=== PATIENT | female | born 1980 | race Caucasian/White ===

== ENCOUNTER 2016-12-09 11:16 | Outpatient (CLI) | payer MEDICAID ==
[~2016-12-09] VITALS: Ht 157.5 cm; Wt 82.7 kg
[2016-12-09 11:50] VITALS: Ht 157.5 cm; Wt 82.7 kg
[2016-12-09 11:51] VITALS: BP 98/56; PULSE 72
[2016-12-09] MEDS ORDERED: PRENAT PO (11:54)
[2016-12-09] MEDS ORDERED: LACTATED RINGER'S 1,000 ML IV SCH (12:30)
--- NOTE | 2016-12-09 12:47 | RADRPT ---
PROCEDURE: OB ultrasound for biophysical profile CLINICAL INDICATION: Contractions TECHNIQUE: Multiple sonographic images of the pelvis were obtained. Transabdominal view of the gr avid uterus are available for review. The images were reviewed on a PACS workstation. COMPARISON: OB ultrasound 12/09/2016 FINDINGS: breathing movement = 2/2 tone = 2/2 motion = 2/2 JEN = 2/2 JEN = 13.3 cm Single live intrauterine with cardiac activity. heart rate equals 136 beats p er minute. Presentation is cephalic. The placenta is left fundal, grade II. IMPRESSION: 1. Single viable intrauterine gestation. 2. Biophysical profile = 8/8. 3. JEN = 13.3 cm. RPTAT: KK .Frna Nelson MD, Date Time Electronically viewed and signed by .Fran Nelson MD, MD on 12/09/2016 12:47 .B/
[2016-12-09 14:14] LABS: ADD UMIC YES; UR AMORPHOUS CRYSTAL FEW /HPF (NONE SEEN); UR ASCORBIC ACID NEGATIVE (NEGATIVE); UR BACTERIA FEW /HPF (NONE SEEN); UR BILIRUBIN (Dip) NEGATIVE (NEGATIVE); UR BLOOD (Dip) NEGATIVE (NEGATIVE); UR CLARITY CLOUDY (CLEAR); UR COLOR YELLOW (YELLOW); UR GLUCOSE (Dip) NEGATIVE (NEGATIVE); UR KETONES (Dip) NEGATIVE (NEGATIVE); UR LEUKOCYTE ESTERASE (Dip) NEGATIVE Leu/ul (NEGATIVE); UR NITRITE (Dip) NEGATIVE (NEGATIVE); UR RBC 2 /HPF (0-5); UR SPECIFIC GRAVITY (Dip) 1.013 (1.003-1.030); UR SQUAMOUS EPITHELIAL CELL MODERATE /HPF (FEW); UR TOTAL PROTEIN (Dip) NEGATIVE (NEGATIVE); UR UROBILINOGEN (Dip) NEGATIVE (NEGATIVE)
--- NOTE | 2016-12-09 15:40 | CONS ---
Date/Time of Note Date/Time of Note DATE: 12/09/16 TIME: 15:34 Consultation Date/Type/Reason Admit Date/Time December 09, 2016 OB triage consult Reason for Consultation This patient is 36 years old 4 para 3 whose estimated date of confinement is 01/15/2017 which makes her 34 weeks and 4 days today. She has gestational diabetes mellitus which is diet-controlled at this time her main complaint was contractions On examination she is a well-developed well-nourished lady near term in no acute distress. Her general vital signs are basically normal, blood pressure 98/52, pulse rate 72, respiration 18 and temperature 98,. On pelvic examination the cervix was basically closed and thick no evidence of rupture of membranes. Laboratory Tests Test 12/09/16 12:01 12/09/16 12:50 Bedside Glucose 105mg/dL Urine Color YELLOW Urine Clarity CLOUDY Urine pH 7.0 Urine Specific [place] 1.013 Urine Ketones NEGATIVEmg/dL Urine Nitrite NEGATIVEmg/dL Urine Bilirubin NEGATIVEmg/dL Urine Urobilinogen NEGATIVEmg/dL Urine Leukocyte Esterase NEGATIVELeu/ul Urine Microscopic RBC 2/HPF Urine Microscopic WBC 4/HPF Urine Squamous Epithelial Cells MODERATE/HPF Urine Amorphous Crystals FEW/HPF Urine Bacteria FEW/HPF Urine Hemoglobin NEGATIVEmg/dL Urine Glucose NEGATIVEmg/dL Urine Total Protein NEGATIVEmg/dl Current Medications Medications (Trade) Dose Ordered Sig/Ruthy Route PRN Reason Start Time Stop Time Status Last Admin Dose Admin Lactated Ringer's (Lr) 1,000 ml @ 125 mls/hr Q8H IV 12/09/16 12:30 12/09/16 12:30 125 MLS/HR Constitutional: No chills, No diaphoresis, No disoriented, No febrile, No improved, No no complaints, No other, No poor po, No requiring IVF, No requiring O2 Eyes: No discharge, No no complaints, No other, No pain, No redness, No visual change ENT: No bleeding, No congestion, No discharge, No dysphagia, No no complaints, No other, No pain, No sore throat Respiratory: No cough, No no complaints, No other, No pain, No pleuritic pain, No shortness of breath, No sputum, No wheezing Cardiovascular: No chest pain, No edema, No lightheadedness, No no complaints, No orthopenea, No other, No palpitations, No paroxysmal nocturnal dyspnea Gastrointestinal: other (Cervix was closed and thick with intact membrane), No blood, No constipation, No decreased appetite, No diarrhea, No flatus, No nausea, No no complaints, No pain, No passing stool, No vomiting Genitourinary: No bleeding, No discharge, No dysuria, No flank pain, No hematuria, No no complaints, No other Musculoskeletal: No back pain, No bone/joint pain, No neck pain, No no complaints, No other, No restricted range of motion, No swelling Skin: No bruising, No erythema, No laceration, No no complaints, No other, No pruritis, No rash, No skin lesions Neurologic: No confusion, No dizziness, No focal-weakness, No headache, No no complaints, No other, No seizure, No syncope Endocrine: No dry skin, No no complaints, No other, No polydypsia, No polyuria , No temp intolerance Additional Comments . The lab studies her urinalysis was basically normal no evidence of infection On ultrasound study the report is a single live intrauterine with cardiac activity of 136 bpm cephalic presentation placenta fundal grade 2 biophysical profile was reported 11/15 amniotic fluid index 13.3 cm After hydration and rest patient felt much better with no contractions and was discharged home to be followed in her clinic Social History Smoking Status: Never smoker Exam/Review of Systems Vital Signs Vitals Vital Signs Date Time Temp Pulse Resp B/P Pulse Ox O2 Delivery O2 Flow Rate FiO2 12/09/16 11:51 98.0 72 98/56 Results Results 24 hrs Laboratory Tests Test 12/09/16 12:01 12/09/16 12:50 Bedside Glucose 105 Urine Color YELLOW Urine Clarity CLOUDY A Urine pH 7.0 Urine Specific [place] 1.013 Urine Ketones NEGATIVE Urine Nitrite NEGATIVE Urine Bilirubin NEGATIVE Urine Urobilinogen NEGATIVE Urine Leukocyte Esterase NEGATIVE Urine Microscopic RBC 2 Urine Microscopic WBC 4 Urine Squamous Epithelial Cells MODERATE Urine Amorphous Crystals FEW A Urine Bacteria FEW A Urine Hemoglobin NEGATIVE Urine Glucose NEGATIVE Urine Total Protein NEGATIVE Medications Medications Current Medications Lactated Ringer's (Lr) 1,000 ml @ 125 mls/hr Q8H IV Last administered on t 12:30; Admin Dose 125 MLS/HR; Start 12/09/16 at 12:30 EULALIA MARQUEZ MD Dec 09, 2016 15:40
== END 2016-12-09 15:30 | disposition home or self-care (01) ==
LOC: OBT 11:16 → L-D 11:17 → OBT 15:30
DX: O62.9 Abnormality of forces of labor, unspecified (principal); Z3A.34 34 weeks gestation of pregnancy
CPT/HCPCS: 36415; 76818; 81001; 82962; 96360; 96361; J7120; Z7500; G0463

== ENCOUNTER 2016-12-11 05:30 | Emergency (ER) | payer MEDICAID ==
[~2016-12-11] VITALS: Ht 157.5 cm; Wt 84.6 kg
[~2016-12-11 05:30] MED LIST: PRENAT PO
[2016-12-11 05:38] VITALS: Ht 157.5 cm; Wt 84.6 kg
[2016-12-11] MEDS ORDERED: ACET325T33 PO (08:28)
[2016-12-11] MEDS ORDERED: AMOX1TAB10 PO (08:28)
--- NOTE | 2016-12-11 08:55 | ERD ---
ER Documentation Chief Complaint Date/Time DATE: 12/11/16 TIME: 08:49 Chief Complaint C/O RIGHT LOWER DENTAL PAIN. HAS NOT SEEN DENTIST HPI This is a 36-year-old female presenting to emergency department with right lower dental pain for the past 3 days. Patient has not been in to see a dentist yet for this. No facial swelling. No headache. No nausea or vomiting. Patient is also 34 weeks . Denies vaginal bleeding or pelvic cramping. Denies any contractions. No fevers or chills. ROS All systems reviewed and are negative except as per history of present illness. Medications Home Meds Active Scripts Acetaminophen* (Tylenol*) 325 Mg Tablet, 1 TAB PO Q6 Y for PAIN AND OR ELEVATED TEMP, #20 TAB Prov:STEPHANY CHEN NP 12/11/16 Amoxicillin/Potassium Clav (Amox-Clav 875-125 mg Tablet) 875-125 mg Tab, 1 TAB PO TID for 7 Days, #14 TAB Prov:STEPHANY CHEN NP 12/11/16 Reported Medications Multivit/Min/Fol Ac/Iron/Pren* ( S*) 1 Tab Tab, 1 TAB PO DAILY, TAB 12/09/16 Allergies Allergies: Coded Allergies: No Known Allergy (Unverified , 12/09/16) PMhx/Soc Medical and Surgical Hx: pt denies Surgical Hx Hx Miscellaneous Medical Probl: Yes (Gestational DM) Hx Alcohol Use: No Hx Substance Use: No Hx Tobacco Use: No Smoking Status: Never smoker Physical Exam Vitals Vital Signs Date Time Temp Pulse Resp B/P Pulse Ox O2 Delivery O2 Flow Rate FiO2 12/11/16 05:38 97.9 82 20 124/69 99 Physical Exam Const: No acute distress , alert Head: Atraumatic Eyes: Normal Conjunctiva ENT: deterioration of right lower 2nd molar, no swelling. no drainage. Neck: Full range of motion..~ No meningismus. Skin: No petechiae or rashes Ext: No cyanosis, or edema Neur: Awake and alert Psych: Normal Mood and Affect Procedures/MDM MDM: This is a 36-year-old female presenting to emergency department with right lower second molar dental pain for the past 3 days. Patient is afebrile upon arrival to ED and vital signs are stable. Patient has not been to see dentist yet for this. Patient's pain is localized to 2nd lower molar. There is deterioration of this tooth on physical exam. No swelling or drainage. No earache. No headache. Patient is also 34 weeks without any vaginal bleeding or pelvic cramping. Vital are stable. No nausea, vomiting, abdominal pain,dysuria or hematuria. Differential diagnosis includes but not limited to dental abscess, deep space abscess or infection, otitis media, strep pharyngitis and pain not otherwise specified. Patient is appropriate for outpatient management will be given prescription for Augmentin 875 mg #21. Instructed patient to follow-up with dentist in the next 2-3 days for reassessment. Return to ED for any high fever, chest pain, difficulty breathing, shortness breath, wheezing, vomiting, diarrhea, abdominal pain or any new or worsening symptoms. Patient verbalizes understanding. All questions answered at discharge. Disclaimer: Inadvertent spelling and grammatical errors are likely due to EHR/ dictation software use and do not reflect on the overall quality of patient care. Also, please note that the electronic time recorded on this note does not necessarily reflect the actual time of the patient encounter. Departure Diagnosis: Primary Impression: Toothache Condition: Stable Patient Instructions: Dental Pain Referrals: [facility] Usted se woods hecho un examen mdico de control que le indica que no est en fransisco condicin que requiera tratamiento urgente en el Departamento de Emergencia. Un estudio ms profundo y el tratamiento de chanel condicin pueden esperar sin ningn riesgo hasta que usted sea atendida/o en el consultorio de chanel mdico o fransisco cl katy. Es responsabilidad suya arreglar fransisco aruna para el seguimiento del samantha. MANEJO DE CONDICIONES NO URGENTES EN EL FUTURO 1) Si usted tiene un mdico de atencin primaria: Usted debera llamar a chanle mdico de atencin primaria antes de venir al departamento de emergencia. Despus de las horas de consultorio, chanel doctor o chanel asociado/a est disponible por telfono. El mdico o enfermero de cookie en el servicio telefnico puede asesorarle por purnima medio para atender el problema, o samantha contrario se puede programar fransisco aruna. 2) Si usted no tiene un mdico de atencin primaria: Llame al mdico o clnica de referencia que aparece abajo eros las horas de consultorio para hacer fransisco aruna para que le vean. CLINICAS: [facility] [phone] [facility] [phone] [facility] [phone] [facility] [phone] [facility] [phone] [address] [facility] [phone] [address] [facility] [facility] () Usted se woods hecho un examen mdico de control que le indica que no est en fransisco condicin que requiera tratamiento urgente en el Departamento de Emergencia. Un estudio ms profundo y el tratamiento de chanel condicin pueden esperar sin ningn riesgo hasta que usted sea atendida/o en el consultorio de chanel mdico o fransisco cl katy. Es responsabilidad suya arreglar fransisco aruna para el seguimiento del samantha. MANEJO DE CONDICIONES NO URGENTES EN EL FUTURO 1) Si usted tiene un mdico de atencin primaria: Usted debera llamar a chanel mdico de atencin primaria antes de venir al departamento de emergencia. Despus de las horas de consultorio, chanel doctor o chanel asociado/a est disponible por telfono. El mdico o enfermero de cookie en el servicio telefnico puede asesorarle por purnima medio para atender el problema, o samantha contrario se puede programar fransisco aruna. 2) Si usted no tiene un mdico de atencin primaria: Llame al mdico o condado institucions de referencia que aparece abajo eros las horas de consultorio para hacer fransisco aruna para que le vean. SI USTED NO PUEDE PAGAR PARA YUMIKO UN MEDICO puede ir a: [facility] [address] [place] [address] [facility] [address] [place] [address] [facility] [address] [place] [address] PARA [facility]SE[facility] [address] [place], [place] [id number] Additional Instructions: Llame al doctor MAANA y ralph fransisco ARUNA PARA DENTRO DE 2-3 HAHN.Dgale a la secretaria que nosotros le instruimos hacer esta aruna.Avise o llame si chanel condicin se empeora antes de la aruna. Regresa aqui si peor o no mejor. Regresar a ED por fiebre attila, dolor en el pecho, dificultad para respirar, respiracin entrecortada, sibilancias, vmitos, diarrea, dolor abdominal o cualquier sntoma nuevo o que empeora. STEPHANY CHEN NP Dec 11, 2016 08:55
== END 2016-12-11 08:51 | disposition home or self-care (01) ==
LOC: FTE 05:30
DX: O99.613 Diseases of the digestive system complicating pregnancy, third trimester (principal); K08.89 Other specified disorders of teeth and supporting structures; Z3A.34 34 weeks gestation of pregnancy
CPT/HCPCS: 99283

== ENCOUNTER 2016-12-11 21:05 | Outpatient (CLI) | payer MEDICAID ==
[~2016-12-11] VITALS: Ht 157.5 cm; Wt 83.3 kg
[~2016-12-11 21:05] MED LIST changes: +ACET325T33 PO; +AMOX1TAB10 PO
[2016-12-11 21:18] VITALS: BP 115/75; PULSE 18; RESP 18; Ht 157.5 cm; Wt 83.3 kg
[2016-12-11] MEDS ORDERED: LACTATED RINGER'S 1,000 ML IV ONE (23:30)
[2016-12-11] MEDS ORDERED: BETAMET NA PHOS/AC(6 MG/ML) 5ML INJ IM SCH (23:30)
[2016-12-11 23:33] LABS: ADD UMIC NO; UR ASCORBIC ACID NEGATIVE (NEGATIVE); UR BILIRUBIN (Dip) NEGATIVE (NEGATIVE); UR BLOOD (Dip) NEGATIVE (NEGATIVE); UR CLARITY CLEAR (CLEAR); UR COLOR YELLOW (YELLOW); UR GLUCOSE (Dip) NEGATIVE (NEGATIVE); UR KETONES (Dip) NEGATIVE (NEGATIVE); UR LEUKOCYTE ESTERASE (Dip) NEGATIVE Leu/ul (NEGATIVE); UR NITRITE (Dip) NEGATIVE (NEGATIVE); UR SPECIFIC GRAVITY (Dip) 1.006 (1.003-1.030); UR TOTAL PROTEIN (Dip) NEGATIVE (NEGATIVE); UR UROBILINOGEN (Dip) NEGATIVE (NEGATIVE)
--- NOTE | 2016-12-12 01:26 | PN ---
Triage Information Date/Time 12/12/16 0113 Reason for visit: Uterine contractions Weeks of Gestation 34w6d /Para had x3 previous sections ER send for OB ck after evaluation for toothache Hypertention: none Additional information lower abdominal pain 10/17 Objective Vital Signs Date Time Temp Pulse Resp B/P Pulse Ox O2 Delivery O2 Flow Rate FiO2 12/11/16 21:18 97.6 18 18 115/75 Room Air Heart Rate: 140's Heart Rate Comments EFM uc 3-5min apart Contractions: < 5 Minutes Apart Exam VE closed /long/high Results/Medications Results 24 hrs Laboratory Tests Test 12/11/16 23:00 Urine Color YELLOW Urine Clarity CLEAR Urine pH 7.0 Urine Specific [place] 1.006 Urine Ketones NEGATIVE Urine Nitrite NEGATIVE Urine Bilirubin NEGATIVE Urine Urobilinogen NEGATIVE Urine Leukocyte Esterase NEGATIVE Urine Hemoglobin NEGATIVE Urine Glucose NEGATIVE Urine Total Protein NEGATIVE Medications Current Medications Betamethasone Acet/Betameth SodPhos (Celestone Soluspan) 12 mg Q24H IM Last administered on 12/12/16 00:00; Admin Dose 12 MG; Start 12/11/16 at 23:30; Stop 12/12/16 at 23:31 Disposition: Discharge Assessment/Plan IUP 34w6d PTL resolution of PTL after IV hydration 1st dose of bmz given Plan increse fluid intake bed rest return to triage tomorrow m/n for 2nd dose of betamethasone CHAVEZ WARREN MD Dec 12, 2016 01:26
--- NOTE | 2016-12-12 02:27 | TRIAGE ---
OB Triage Datetime Report Generated by CPN: 12/12/2016 02:26 Datetime: 12/12/2016 01:01 Stage of : OB Triage Datetime: 12/12/2016 01:00 Stage of : OB Triage Stage of : Labor Labor Evaluation Frequency: X3 Monitor Mode: External Duration (sec)2399: 50-70 Pattern: Normal: <= 5 Contractions in 10 Minutes Heart Rate FHR Baseline Rate: 135 Monitor Mode: External US Variability: Moderate 6-25 bpm Accelerations: 15X15 Decelerations: None Category: Category I Pain Presence: None/Denies Pain Assessment Comments: PT SLEEPING AT THIS TIME. Datetime: 12/12/2016 00:00 Stage of : OB Triage Stage of : Labor Labor Evaluation Frequency: IRREGULAR Monitor Mode: External Duration (sec)2399: 50-60 Quality: UTERINE IRRITABILITY NOTED. Pattern: Normal: <= 5 Contractions in 10 Minutes Heart Rate FHR Baseline Rate: 135 Monitor Mode: External US Variability: Moderate 6-25 bpm Accelerations: 15X15 Decelerations: None Category: Category I Datetime: 12/11/2016 23:00 Stage of : OB Triage Stage of : Labor Monitor Mode: External Quality: UTERINE IRRITABILITY NOTED. Pattern: Normal: <= 5 Contractions in 10 Minutes Heart Rate FHR Baseline Rate: 145 Monitor Mode: External US Variability: Moderate 6-25 bpm Accelerations: 15X15 Decelerations: None Datetime: 12/11/2016 22:01 Stage of : OB Triage Labor Evaluation Frequency: IRREGULAR Monitor Mode: External Duration (sec)2399: 60-80 Quality: Mild Pattern: Normal: <= 5 Contractions in 10 Minutes Heart Rate FHR Baseline Rate: 135 Monitor Mode: External US Variability: Moderate 6-25 bpm Accelerations: 15X15 Decelerations: None Category: Category I Datetime: 12/11/2016 21:34 Stage of : OB Triage Datetime: 12/11/2016 21:30 Stage of : OB Triage Assessment Type: Triage Time Provider Notified: 12/11/2016 21:34 Maternal Assessment Level of Consciousness: Fully Conscious DTR's/Clonus: DTRs 2+; No Clonus Headache: Denies Blurred Vision: No Respiratory Effort: Unlabored; Regular Rhythm; Equal Expansion Breath Sounds, Left: Clear and Equal Breath Sounds, Right: Clear and Equal Nausea/Vomiting: Denies RUQ Epigastric Pain: Denies Lower Extremities Edema: None Degree: None Upper Extremities Edema: None Degree: None Facial Edema: None Temperature Route: Oral Fall Risk Assessment History of Falling: (0) No Secondary Diagnosis: (0) No Ambulatory Aid: (0) Bedrest/Nurse Assist IV Therapy: (0) No Gait: (0) Normal/Bedrest/Immobile Mental Status: (0) Oriented to Own Ability Fall Score: 0 Fall Risk Score Definition: No Risk: No action required Pain Assessment Pain Scale: 7 Pain Presence: Intermittent Pain Type: Contraction Pain Location: Abdomen Pain Relief Measures: Comfort Measures Datetime: 12/11/2016 21:24 Time of Arrival: 12/11/2016 21:05 EGA: 34.6 Arrived By: Ambulatory Arrived From: Emergency Dept Chief Complaint: CONTRACTIONS SINCE 1800 Movement: Present Contractions: Irregular Time Contractions Began: 12/11/2016 18:00 Rupture of Membranes: Denies Vaginal Discharge: Denies Recent Sexual Intercouse: Denies Abdominal Trauma: Not Applicable Patient Complaints: Contractions Time Provider Notified: 12/11/2016 21:20 Initial Plan: EFM, CALL OB Datetime: 12/09/2016 15:16 Stage of : OB Triage Datetime: 12/09/2016 14:53 Labor Evaluation Frequency: 0 Monitor Mode: External Pattern: Normal: <= 5 Contractions in 10 Minutes Resting Tone [place]: Relaxed Heart Rate FHR Baseline Rate: 135 Monitor Mode: External US Variability: Moderate 6-25 bpm Accelerations: 10X10 Decelerations: None Category: Category I Pain Assessment Pain Scale: 0 Pain Presence: None/Denies Pain Type: N/A Pain Goal: 3 Pain Relief Measures: Comfort Measures Datetime: 12/09/2016 13:47 Labor Evaluation Frequency: 0 Monitor Mode: External Pattern: Normal: <= 5 Contractions in 10 Minutes Resting Tone [place]: Relaxed Heart Rate FHR Baseline Rate: 135 Monitor Mode: External US Variability: Moderate 6-25 bpm Accelerations: 10X10 Decelerations: None Category: Category I Pain Assessment Pain Scale: 0 Pain Presence: None/Denies Pain Type: N/A Pain Goal: 3 Pain Relief Measures: Comfort Measures Datetime: 12/09/2016 12:45 Labor Evaluation Frequency: 7-8 Monitor Mode: External Duration (sec)2399: 50-70 Quality: Mild Pattern: Normal: <= 5 Contractions in 10 Minutes Resting Tone [place]: Relaxed Heart Rate FHR Baseline Rate: 135 Monitor Mode: External US Variability: Moderate 6-25 bpm Accelerations: 10X10 Decelerations: None Category: Category I Pain Assessment Pain Scale: 4 Pain Presence: Intermittent Pain Type: Cramping Pain Location: Abdomen Pain Goal: 3 Pain Relief Measures: Comfort Measures Datetime: 12/09/2016 12:02 Stage of : OB Triage Datetime: 12/09/2016 12:00 Bedside Blood Glucose: 105 Datetime: 12/09/2016 11:44 Stage of : OB Triage Assessment Type: Triage Maternal Assessment Level of Consciousness: Fully Conscious DTR's/Clonus: DTRs 2+; No Clonus Headache: Denies Blurred Vision: No Respiratory Effort: Unlabored; Regular Rhythm; Equal Expansion Breath Sounds, Left: Clear and Equal Breath Sounds, Right: Clear and Equal Nausea/Vomiting: Denies RUQ Epigastric Pain: Denies Facial Edema: None Temperature Route: Axillary Fall Risk Assessment History of Falling: (0) No Secondary Diagnosis: (0) No Ambulatory Aid: (0) Bedrest/Nurse Assist IV Therapy: (0) No Gait: (0) Normal/Bedrest/Immobile Mental Status: (0) Oriented to Own Ability Fall Score: 0 Fall Risk Score Definition: No Risk: No action required Monitor Mode: External Pattern: Normal: <= 5 Contractions in 10 Minutes Resting Tone [place]: Relaxed Heart Rate FHR Baseline Rate: 135 Monitor Mode: External US Variability: Moderate 6-25 bpm Accelerations: 10X10 Decelerations: None Category: Category I Pain Assessment Pain Scale: 5 Pain Presence: Intermittent Pain Type: Cramping Pain Location: Abdomen Pain Goal: 3 Pain Relief Measures: Comfort Measures Datetime: 12/09/2016 11:43 Time of Arrival: 12/09/2016 11:10 EGA: 34.4 Arrived By: Ambulatory Arrived From: Dr. Waterman Chief Complaint: STATES WAS IN CLINIC TODAY AND TOLD SHE WAS HAVING UC;S Q 4 MIN. DENIES LEAKING OR BLEEDING Movement: Present Contractions: Regular Contractions: Q4 Rupture of Membranes: Denies Vaginal Bleeding: None Vaginal Discharge: Denies Recent Sexual Intercouse: Denies Abdominal Trauma: Not Applicable Patient Complaints: Cramping Time Provider Notified: 12/09/2016 12:02 Provider Notified: tala Initial Plan: MONITOR, bpp, diomedes, iv hydration, u/a
== END 2016-12-12 01:04 | disposition home or self-care (01) ==
LOC: L-D 21:05 → OBT 21:05 → L-D 21:07 → OBT 12-12 01:04
PROVIDERS: ATTEND Obstetrics & Gynecology
DX: O62.9 Abnormality of forces of labor, unspecified (principal); Z3A.34 34 weeks gestation of pregnancy
CPT/HCPCS: 36415; 81003; 96360; 96361; 96372; J0702; J7120; Z7500; G0463

== ENCOUNTER 2016-12-12 23:48 | Outpatient (CLI) | payer MEDICAID ==
[2016-12-13] MEDS ORDERED: BETAMET NA PHOS/AC(6 MG/ML) 5ML INJ IM SCH (00:30)
--- NOTE | 2016-12-13 00:43 | PN ---
Triage Information Date/Time Reason for visit: Weeks of Gestation 35 weeks /Para 4 P3 with prior history of 3 She presents to receive the second dose of betamethasone Patient reports positive movement Diabetes: none Hypertention: none Objective Heart Rate: 140's Contractions: None Results/Medications Medications Current Medications Betamethasone Acet/Betameth SodPhos (Celestone Soluspan) 12 mg Q24H IM Last administered on 12/13/16 00:32; Admin Dose 12 MG; Start 12/13/16 at 00:30; Stop 12/14/16 at 00:31 Disposition: Discharge Assessment/Plan Patient received a second dose of betamethasone She was instructed to follow-up with the clinic in 2-3 days IQRA BANSAL MD Dec 13, 2016 00:43
--- NOTE | 2016-12-13 00:59 | TRIAGE ---
OB Triage Datetime Report Generated by CPN: 12/13/2016 00:58 Datetime: 12/13/2016 00:15 Stage of : OB Triage Datetime: 12/12/2016 23:56 Time of Arrival: 12/12/2016 23:42 EGA: 35.0 Arrived By: Ambulatory Arrived From: Home Chief Complaint: PT BACK FOR 2ND BETAMETHASONE Movement: Present Contractions: Irregular Rupture of Membranes: Denies Vaginal Bleeding: None Vaginal Discharge: Denies Recent Sexual Intercouse: Denies Abdominal Trauma: Not Applicable Patient Complaints: Other Time Provider Notified: 12/13/2016 00:25 Provider Notified: DR BANSAL Initial Plan: TOCO AND EFM APPLY Datetime: 12/11/2016 21:24 Initial Plan: TO AND EFM APPLY , CALL OB
== END 2016-12-13 00:46 | disposition home or self-care (01) ==
LOC: OBT 23:48 → L-D 23:48 → OBT 12-13 00:46
PROVIDERS: ATTEND Obstetrics & Gynecology Gynecology
DX: O62.9 Abnormality of forces of labor, unspecified (principal); Z3A.35 35 weeks gestation of pregnancy
CPT/HCPCS: 96372; J0702; Z7500; G0463

== ENCOUNTER 2017-01-04 14:10 | Inpatient (IN) | payer MEDICAID ==
[~2017-01-04] VITALS: Ht 157.5 cm; Wt 84.7 kg
[~2017-01-04 14:10] MED LIST changes: -ACET325T33 PO; -AMOX1TAB10 PO
[2017-01-04] MEDS ORDERED: FER325 PO (14:31)
[2017-01-04] MEDS ORDERED: CALC600T24 PO (14:31)
[2017-01-04 14:32] VITALS: BP 104/61; PULSE 69; RESP 18; Ht 157.5 cm; Wt 84.7 kg
--- NOTE | 2017-01-04 16:13 | TRIAGE ---
OB Triage Datetime Report Generated by CPN: 01/04/2017 16:12 Datetime: 01/04/2017 15:30 Stage of : OB Triage Maternal Assessment Level of Consciousness: Fully Conscious Labor Evaluation Frequency: 3UC/HR Monitor Mode: External Duration (sec)2399: 80-110 Quality: Moderate Resting Tone [place]: Relaxed Heart Rate FHR Baseline Rate: 115 Monitor Mode: External US Variability: Moderate 6-25 bpm Accelerations: 15X15 Decelerations: None Category: Category I Pain Assessment Pain Scale: 7 Pain Presence: Intermittent Pain Type: Cramping Pain Location: Abdomen Pain Goal: 3 Vaginal Exam Membrane Status: Intact Vaginal Bleeding: None Datetime: 01/04/2017 14:28 Assessment Type: Triage Maternal Assessment Level of Consciousness: Fully Conscious DTR's/Clonus: DTRs 2+; No Clonus Headache: Denies Blurred Vision: No Respiratory Effort: Unlabored; Regular Rhythm; Equal Expansion Breath Sounds, Left: Clear and Equal Breath Sounds, Right: Clear and Equal Nausea/Vomiting: Denies RUQ Epigastric Pain: Denies Lower Extremities Edema: None Degree: None Upper Extremities Edema: None Degree: None Facial Edema: None Fall Risk Assessment History of Falling: (0) No Secondary Diagnosis: (0) No Ambulatory Aid: (0) Bedrest/Nurse Assist IV Therapy: (0) No Gait: (0) Normal/Bedrest/Immobile Mental Status: (0) Oriented to Own Ability Fall Score: 0 Fall Risk Score Definition: No Risk: No action required Datetime: 01/04/2017 14:25 Time of Arrival: 01/04/2017 14:03 EGA: 38.2 Arrived By: Ambulatory Arrived From: Office Chief Complaint: C/O UC'S X2 DAYS Movement: Present Contractions: Irregular Rupture of Membranes: Denies Vaginal Bleeding: None Vaginal Discharge: Denies Recent Sexual Intercouse: Denies Abdominal Trauma: Not Applicable Patient Complaints: Contractions; Cramping Time Provider Notified: 01/04/2017 16:00 Provider Notified: DELSHAD Initial Plan: EFM Datetime: 01/04/2017 14:23 Monitor Mode: External Monitor Mode: External US Datetime: 12/13/2016 00:48 Stage of : OB Triage Datetime: 12/13/2016 00:35 Stage of : OB Triage Datetime: 12/13/2016 00:28 Stage of : OB Triage Maternal Assessment Level of Consciousness: Fully Conscious Labor Evaluation Frequency: NONE Monitor Mode: External Heart Rate FHR Baseline Rate: 130 Monitor Mode: External US Variability: Moderate 6-25 bpm Accelerations: 15X15 Decelerations: None Category: Category I Pain Presence: None/Denies Datetime: 12/13/2016 00:25 Stage of : OB Triage Datetime: 12/13/2016 00:15 Maternal Assessment Level of Consciousness: Fully Conscious DTR's/Clonus: DTRs 2+; No Clonus Headache: Denies Blurred Vision: No Respiratory Effort: Unlabored; Regular Rhythm; Equal Expansion Breath Sounds, Left: Clear and Equal Breath Sounds, Right: Clear and Equal Nausea/Vomiting: Denies RUQ Epigastric Pain: Denies Lower Extremities Edema: None Upper Extremities Edema: None Facial Edema: None Temperature Route: Oral Fall Risk Assessment History of Falling: (0) No Secondary Diagnosis: (0) No Ambulatory Aid: (0) Bedrest/Nurse Assist IV Therapy: (0) No Gait: (0) Normal/Bedrest/Immobile Mental Status: (0) Oriented to Own Ability Fall Score: 0 Fall Risk Score Definition: No Risk: No action required Labor Evaluation Frequency: 70 Monitor Mode: External Quality: Mild Heart Rate FHR Baseline Rate: 130 Monitor Mode: External US Variability: Moderate 6-25 bpm Accelerations: 15X15 Decelerations: None Category: Category I Pain Presence: None/Denies Datetime: 12/12/2016 23:56 EGA: 35.0 Datetime: 12/11/2016 21:30 Fall Score: 0 Fall Risk Score Definition: No Risk: No action required Datetime: 12/11/2016 21:24 EGA: 34.6 Datetime: 12/09/2016 11:44 Fall Score: 0 Fall Risk Score Definition: No Risk: No action required Datetime: 12/09/2016 11:43 EGA: 34.4
[2017-01-04] MEDS ORDERED: MISOPROSTOL 200 MCG TAB PR PRN (17:00)
[2017-01-04] MEDS ORDERED: CARBOPROST 250 MCG INJ IM PRN (17:00)
[2017-01-04] MEDS ORDERED: OXYTOCIN 30 UNITS/LR 500 ML IV PRN (17:00)
[2017-01-04] MEDS ORDERED: METHYLERGONOVINE 0.2 MG INJ IM PRN (17:00)
[2017-01-04] MEDS ORDERED: CEFAZOLIN 2 GM/50 ML (PMX) 50 ML IV SCH (17:00)
[2017-01-04] MEDS: LACTATED RINGER'S 1,000 ML IV SCH ×2 (17:01→19:37)
[2017-01-04 17:24] LABS: BASOPHILS % 0.2 % (0.0-2.0); EOSINOPHILS % 0.7 % (0.0-7.0); HEMATOCRIT 35.4 % (37.0-47.0); HEMOGLOBIN 11.9 g/dl (12.0-16.0); LYMPHOCYTES # 1.4 10^3/ul (0.8-2.9); LYMPHOCYTES % 25.9 % (15.0-51.0); MEAN CORPUSCULAR HEMOGLOBIN 30.1 pg (29.0-33.0); MEAN CORPUSCULAR HGB CONC 33.6 g/dl (32.0-37.0); MEAN CORPUSCULAR VOLUME 89.6 fl (82.0-101.0); MEAN PLATELET VOLUME 11.9 fl (7.4-10.4); MONOCYTE # 0.4 10^3/ul (0.3-0.9); MONOCYTES % 7.2 % (0.0-11.0); NEUTROPHIL # 3.7 10^3/ul (1.6-7.5); NEUTROPHILS % 65.6 % (39.0-77.0); PLATELET COUNT 183 10^3/UL (140-415); RED BLOOD COUNT 3.95 10^6/ul (4.20-5.40); RED CELL DISTRIBUTION WIDTH 13.3 % (11.5-14.5); WHITE BLOOD COUNT 5.6 10^3/ul (4.8-10.8)
[2017-01-04 17:39] LABS: INR 0.89; PT RATIO 0.9
[2017-01-04 17:40] LABS: PARTIAL THROMBOPLASTIN TIME 30.7 Sec (25.0-35.0)
[2017-01-04] MEDS ORDERED: CITRIC ACID/NA CITRATE 30 ML CUP ONE (18:37)
[2017-01-04] MEDS ORDERED: ONDANSETRON 4 MG INJ ONE (18:37)
--- NOTE | 2017-01-04 18:37 | HP ---
Date/Time of Note Date/Time of Note DATE: 01/04/17 TIME: 18:31 OB - History Hx of Present Chief Complaint: contractions Estimated Due Date: Jan 16, 2017 : 4 Para: 3 Spontaneous : 0 Therapeutic : 0 Care: Good Care Ultrasounds: Normal mid trimester US Obstetrical Complications: Gestational Diabetes Medical Complications: None Past Family/Social History * Past Medical, Surgical, Family and Obstetric Histories reviewed from chart. GBS Status: Negative OB Admission Exam Vital Signs Vital Signs Vital Signs Date Time Temp Pulse Resp B/P Pulse Ox O2 Delivery O2 Flow Rate FiO2 01/04/17 14:32 98.3 69 18 104/61 98 Room Air Physical Exam HEENT: WNL Heart: Rhythm Normal Lungs: Clear, Equal Abdomen: WNL Extremities: Normal Reflexes: Normal Heart Rate: 120's Accelerations: Accelerations Present Decelerations: No Decelerations Varibility: Moderate Contractions on Admission: 6-10 Minutes Apart Last 72 hourBlood Glucose Bedside Glucose - 72 Hours Test 01/04/17 16:34 01/04/17 18:22 Bedside Glucose 68mg/dL (70-220) L 77mg/dL (70-220) Last 72 hours Lab Results CBC & BMP 01/04/17 16:15 OB Assessment/Plan Reason for admission: section Other Assessment: voluntary sterilization Plan: Section Other plan: MORIAH DIOR MD Jan 04, 2017 18:37
[2017-01-04] MEDS ORDERED: ONDANSETRON 4 MG INJ IV STA (18:42)
[2017-01-04] MEDS ORDERED: CITRIC ACID/NA CITRATE 30 ML CUP PO ONE (19:00)
[2017-01-04] MEDS ORDERED: DEXTROSE 5%-LR 1,000 ML IV SCH (19:00)
[2017-01-04] MEDS ORDERED: morphine SULFATE/PF (10 MG/10 ML) INJ ONE (19:47)
[2017-01-04] MEDS ORDERED: OXYTOCIN 10 UNIT INJ ONE (19:47)
[2017-01-04] MEDS ORDERED: PHENYLephrine (100 MCG/ML) 5ML SYG ONE (19:47)
[2017-01-04] MEDS ORDERED: METOCLOPRAMIDE 10 MG INJ ONE (19:47)
[2017-01-04] MEDS ORDERED: FENTAnyl 50 MCG/ML VIAL ONE (19:47)
[2017-01-04] MEDS ORDERED: DIPHENHYDRAMINE 50 MG INJ ONE (20:16)
[2017-01-04] MEDS ORDERED: ALBUTEROL 0.083% (NEB) 2.5 MG/3 ML AMP HHN PRN (20:30)
[2017-01-04] MEDS ORDERED: morphine 2 MG INJ IV PRN (20:30)
[2017-01-04] MEDS ORDERED: TRIMETHOBENZAMIDE 100 MG/ML VIAL IM PRN ×2 (20:30)
[2017-01-04] MEDS ORDERED: EPHEDrine SULFATE 50 MG/5 ML SYG IV PRN (20:30)
[2017-01-04] MEDS ORDERED: DIPHENHYDRAMINE 50 MG INJ IV PRN ×2 (20:30)
[2017-01-04] MEDS ORDERED: FENTAnyl 50 MCG/ML VIAL IV PRN ×3 (20:30)
[2017-01-04] MEDS ORDERED: morphine 4 MG/ML VIAL IV PRN (20:30)
[2017-01-04] MEDS ORDERED: HYDROmorphONE (0.2 MG/ML) 10ML SYG IV PRN ×3 (20:30)
[2017-01-04] MEDS ORDERED: NALBUPHINE HCL (10 MG/1 ML) INJ IV PRN (20:30)
[2017-01-04] MEDS ORDERED: hydrALAzine 20 MG INJ IV PRN (20:30)
[2017-01-04] MEDS ORDERED: OXYCODONE/ACETAMINOPHEN (5/325) TAB PO PRN ×2 (20:30)
[2017-01-04] MEDS ORDERED: MEPERIDINE 25 MG INJ IV PRN (20:30)
[2017-01-04] MEDS ORDERED: ONDANSETRON 4 MG INJ IV PRN ×2 (20:30)
[2017-01-04] MEDS ORDERED: IPRATROPIUM (NEB) 0.5 MG/2.5 ML AMP HHN PRN (20:30)
[2017-01-04] MEDS ORDERED: NALOXONE (0.4 MG/ML) INJ IV PRN (20:30)
[2017-01-04] MEDS ORDERED: LABETALOL HCL 20MG INJ IV PRN (20:30)
[2017-01-04] MEDS ORDERED: OXYTOCIN 30 UNITS/LR 500 ML IV SCH (21:40)
--- NOTE | 2017-01-04 22:00 | SIPON ---
Date/Time of Note Date/Time of Note DATE: 01/04/17 TIME: 21:56 Operative Report Preoperative Diagnosis 38 weeks and 2 days, GDM, previous c/s x3, GDM, voluntary sterilization Postoperative Diagnosis Same Operation/Procedure Performed Repeat c/s and BTL Surgeon Moriah Amin MD physician's assistant Ashley Gonzalez MD Anesthesia: spinal Estimated blood loss: other (600 ml) Transfusion Required none Specimen placenta, right and left Fallopian tubes Grafts/Implants none Complications none MORIAH AMIN MD Jan 04, 2017 22:00
[2017-01-04 22:45] VITALS: BP 145/69
[2017-01-04 23:00] VITALS: BP 135/69; PULSE 61
[2017-01-04 23:15] VITALS: BP 114/67; PULSE 60; RESP 18
[2017-01-05] VITALS: BP 116/62; PULSE 66; RESP 18
[2017-01-05] MEDS: LACTATED RINGER'S 1,000 ML IV SCH ×3 (00:16→15:18)
[2017-01-05] MEDS ORDERED: METHYLERGONOVINE 0.2 MG INJ IM PRN (00:30)
[2017-01-05] MEDS ORDERED: CARBOPROST 250 MCG INJ IM PRN (00:30)
[2017-01-05] MEDS ORDERED: MISOPROSTOL 200 MCG TAB PR PRN (00:30)
[2017-01-05] MEDS ORDERED: OXYTOCIN 30 UNITS/LR 500 ML IV PRN (00:30)
[2017-01-05] MEDS ORDERED: LANOLIN 7 GM TUBE TOP PRN (00:30)
[2017-01-05 01:00] VITALS: BP 112/75; RESP 18
[2017-01-05] MEDS: OXYTOCIN 30 UNITS/LR 500 ML IV SCH ×2 (02:48→09:48)
[2017-01-05] MEDS: KETOROLAC 30 MG INJ IV PRN ×2 (02:53→12:58)
--- NOTE | 2017-01-05 03:33 | OPR ---
DATE OF OPERATION: 01/04/2017 PREOPERATIVE DIAGNOSES: 1. at 38 weeks and 2 days, with previous x3. 2. contractions. 3. Gestational diabetes. 4. Voluntary sterilization. POSTOPERATIVE DIAGNOSES: 1. at 38 weeks and 2 days, with previous x3. 2. contractions. 3. Gestational diabetes. 4. Voluntary sterilization. OPERATION PERFORMED: Repeat low-transverse section and bilateral tubal ligation. SURGEON: Dr. Gomez. SUPERVISOR FILM PROCESSING: Roxana Gonzalez MD. ANESTHESIA: Spinal. ANESTHESIOLOGIST: Dr. Donaldson. OPERATIVE PROCEDURE: The patient was taken to the operating room, and placed on the operating table. After successful spinal anesthesia was given, the patient was placed in supine position. The area was prepared and draped in the usual sterile fashion. Spinal anesthesia was assessed and was satisfactory. Using a scalpel, a Pfannenstiel incision was made about 2 fingerbreadths above the symphysis pubis. The incision was carried to the fascia. The fascia was incised and extended bilaterally with Goldstein scissors. Two Kochers were used to separate the fascia from the muscle. The muscle was dissected peritoneum. The peritoneum was secured with 2 Kellys and incised with Metzenbaum scissors. Using a scalpel, a small transverse incision was made on the lower segment of uterus. Upon entering the uterine cavity, bandage scissors were inserted to extend the incision bilaterally, carried up. Baby was delivered from cephalic presentation. After suctioned clear of amniotic fluid, the baby was handed off to the team in attendance. Apgars were 8 and 9. The placenta was delivered without difficulty. The uterus was closed with #1 Monocryl continuous locked. After assuring hemostasis, both ovaries and tubes were inspected. All looked normal. The right fallopian tube was grasped with a Jimmy clamp. Using 0 plain suture ligature, a 5 cm segment of the right fallopian tube was doubly ligated. Using Metzenbaum scissors, a portion of the right fallopian tube was selected and it was excised and sent to Pathology. The same procedure was repeated on the left fallopian tube, assuring hemostasis. The skin was closed with 2-0 Vicryl continuous. The fascia was closed with #1 Vicryl continuous in 2 segments. Subcutaneous tissue was reapproximated with 2-0 plain. The skin was closed with shaji. ESTIMATED BLOOD LOSS: 600 mL. COUNTS: All counts were correct. Dictated By: Taurus Gomez MD /jose/rosanna /Document#: [id number]
[2017-01-05 08:00] VITALS: BP 111/75; PULSE 73; RESP 17
[2017-01-05] MEDS ORDERED: FERROUS SULFATE (EC) 325 MG TAB PO SCH (09:00)
[2017-01-05] MEDS ORDERED: PRENATAL VITAMIN PO SCH (09:00)
[2017-01-05] MEDS: SENNA/DOCUSATE NA (8.6MG/50MG) TAB PO SCH ×2 (09:42→20:55)
[2017-01-05 10:08] LABS: BASOPHILS % 0.3 % (0.0-2.0); EOSINOPHILS % 0.6 % (0.0-7.0); HEMATOCRIT 34.1 % (37.0-47.0); HEMOGLOBIN 11.7 g/dl (12.0-16.0); LYMPHOCYTES # 0.9 10^3/ul (0.8-2.9); LYMPHOCYTES % 13.3 % (15.0-51.0); MEAN CORPUSCULAR HGB CONC 34.3 g/dl (32.0-37.0); MEAN CORPUSCULAR VOLUME 90.2 fl (82.0-101.0); MEAN PLATELET VOLUME 11.4 fl (7.4-10.4); MONOCYTE # 0.5 10^3/ul (0.3-0.9); MONOCYTES % 7.4 % (0.0-11.0); NEUTROPHIL # 5.4 10^3/ul (1.6-7.5); NEUTROPHILS % 78.1 % (39.0-77.0); PLATELET COUNT 167 10^3/UL (140-415); RED BLOOD COUNT 3.78 10^6/ul (4.20-5.40); RED CELL DISTRIBUTION WIDTH 13.3 % (11.5-14.5); WHITE BLOOD COUNT 6.9 10^3/ul (4.8-10.8)
[2017-01-05 12:00] VITALS: BP 112/67; PULSE 78; RESP 17
[2017-01-05 16:00] VITALS: BP 101/68; PULSE 79; RESP 17
--- NOTE | 2017-01-05 19:41 | QN ---
Documentation Comment No complaint Afebrile VSS Abdomen soft ND POD #1 Stable Ambulate Advance diet. MORIAH AMIN MD Jan 05, 2017 19:41
[2017-01-05] MEDS ORDERED: OXYCODONE/ACETAMINOPHEN (5/325) TAB PO PRN (19:53)
[2017-01-05 20:00] VITALS: BP 115/71; PULSE 89; RESP 16
[2017-01-05] MEDS: OXYCODONE/ACETAMINOPHEN (5/325) TAB PO PRN ×2 (20:24→22:06)
[2017-01-05] MEDS: IBUPROFEN 800 MG TAB PO SCH (22:00)
[2017-01-06] MEDS: LACTATED RINGER'S 1,000 ML IV SCH ×3 (00:16→16:16)
[2017-01-06 04:50] VITALS: BP 111/59; PULSE 68
[2017-01-06] MEDS: IBUPROFEN 800 MG TAB PO SCH ×3 (05:40→22:20)
[2017-01-06 08:00] VITALS: BP 101/79; PULSE 69
[2017-01-06] MEDS: SENNA/DOCUSATE NA (8.6MG/50MG) TAB PO SCH ×2 (09:55→20:46)
--- NOTE | 2017-01-06 12:04 | NSTRPT ---
NST Information Datetime Report Generated by CPN: 01/06/2017 12:03 Datetime: 01/03/2017 10:20 NST Information EGA: 38.1 Test Number: 8 Time on Monitor: 01/03/2017 10:57 Time off Monitor: 01/03/2017 11:32 NST Duration (Min): 35 Reason for NST: Diabetes Mellitus; Low PATRICK; Other Reason for NST Other: A1DM Test and Monitor Explained: Monitor Explained; Test Explained; Verbalized Understanding Pulse: 69 Resp: 18 SBP: 111 DBP: 66 Test Evaluation NST Interventions: None Patient States Movement: Present Contraction Frequency: irregular FHR Baseline : 135 Variability: Moderate 6-25bpm Accelerations: 15X15 Decelerations: None FHR Category: Category I NST Results: Reactive Comments: To u/s. JNE 14.9cm. cephalic. FBS 97. 1145-Pt home undelivered with labor precautions, kick count instructions reviewed and follo w up NST appt given. States understanding and denies further questions at this time. Electronically Signed By E-Signature: with User ID: [id number] Datetime: 12/30/2016 10:40 NST Information EGA: 37.4 NST Duration (Min): 21 Datetime: 12/27/2016 10:06 NST Information EGA: 37.1 NST Duration (Min): 25 Datetime: 12/23/2016 09:11 NST Information EGA: 36.4 NST Duration (Min): 25 Datetime: 12/20/2016 10:30 NST Information EGA: 36.1 NST Duration (Min): 24 Datetime: 12/16/2016 10:00 NST Information EGA: 35.4 NST Duration (Min): 35 Datetime: 12/14/2016 09:00 NST Information EGA: 35.2 NST Duration (Min): 22 Datetime: 12/09/2016 09:58 NST Information EGA: 34.4 Datetime: 12/09/2016 09:00 NST Duration (Min): 49
--- NOTE | 2017-01-06 15:41 | QN ---
Documentation Comment No complaint Afebrile VSS Abdomen soft POD #2 Stable continue present care. MORIAH AMIN MD Jan 06, 2017 15:41
[2017-01-06 16:00] VITALS: BP 100/62; PULSE 86; RESP 66
[2017-01-06 20:36] VITALS: BP 103/76; PULSE 72; RESP 15
[2017-01-06] MEDS: OXYCODONE/ACETAMINOPHEN (5/325) TAB PO PRN (23:23)
[2017-01-07] MEDS: LACTATED RINGER'S 1,000 ML IV SCH (00:16)
[2017-01-07 04:37] VITALS: BP 99/61; PULSE 65; RESP 15
[2017-01-07] MEDS: IBUPROFEN 800 MG TAB PO SCH ×2 (05:41→13:48)
[2017-01-07 08:00] VITALS: BP 109/65; PULSE 58; RESP 18
[2017-01-07] MEDS: SENNA/DOCUSATE NA (8.6MG/50MG) TAB PO SCH (09:00)
[2017-01-07] MEDS ORDERED: DIPHTH/TET/ACEL PERTUSS (ADULT) 0.5 ML VIAL IM* ONE (09:00)
--- NOTE | 2017-01-07 11:15 | DS ---
Date/Time of Note Date/Time of Note DATE: 01/07/17 TIME: 11:10 Obstetrical Discharge Record Final Diagnosis Final Diagnosis: Term delivered Section Section: Repeat Primary Indication Elective tubal ligation Condition on Discharge Physical Assessment Last Vitals: Post C section day 3 Doing Well Afebrile Ambulatory Chest Clear Breasts are soft , Nipples are intact Abdomen is soft Fundus is firm Moderate amount of lochia Incision is clean ,No evidence of infection No calf tenderness No ankle edema Laboratory Tests Test 01/06/17 12:32 01/06/17 15:43 01/06/17 20:44 01/07/17 08:39 Bedside Glucose 107mg/dL 107mg/dL 110mg/dL 81mg/dL Current Medications Medications (Trade) Dose Ordered Sig/Ruthy Route PRN Reason Start Time Stop Time Status Last Admin Dose Admin Lactated Ringer's 1,000 ml @ 125 mls/hr Q8H IV 01/04/17 16:47 01/05/17 00:20 DC 01/04/17 19:37 Cefazolin Sodium/ Dextrose 50 ml @ 100 mls/hr ONCE IV 01/04/17 17:00 01/05/17 00:20 DC Oxytocin/Lactated Ringer's 500 ml @ 0 mls/hr ONCE PRN IV For Hemorrhage Management 01/04/17 17:00 01/05/17 00:20 DC Methylergonovine Maleate (Methergine) 0.2 mg ONCE PRN IM VAGINAL BLEEDING 01/04/17 17:00 01/05/17 00:20 DC Carboprost Tromethamine (Hemabate) 250 mcg ONCE PRN IM VAGINAL BLEEDING 01/04/17 17:00 01/05/17 00:20 DC Misoprostol (Cytotec) 1,000 mcg ONCE PRN ND VAGINAL BLEEDING 01/04/17 17:00 01/05/17 00:20 DC Ferrous Sulfate (Ferrous Sulfate (Ec)) 325 mg DAILY PO 01/05/17 09:00 01/05/17 09:00 DC Prenat Multivit/ [place]/Iron/Folic Ac 1 tab 1 tab DAILY PO 01/05/17 09:00 01/05/17 09:00 DC Dextrose/Lactated Ringer's (D5-Lr) 1,000 ml @ 125 mls/hr Q8H IV 01/04/17 19:00 01/05/17 00:20 DC Citric Acid/ Sodium Citrate (Bicitra) 30 ml STK-MED ONCE .ROUTE 01/04/17 18:37 01/04/17 18:38 DC Ondansetron HCl (Zofran Inj) 4 mg STK-MED ONCE .ROUTE 01/04/17 18:37 01/04/17 18:38 DC Citric Acid/ Sodium Citrate (Bicitra) 30 ml ONCE ONCE PO 01/04/17 19:00 01/04/17 19:01 DC 01/04/17 19:36 Ondansetron HCl (Zofran Inj) 4 mg ONCE STAT IV 01/04/17 18:42 01/04/17 18:48 DC 01/04/17 19:36 Morphine Sulfate (Duramorph) 10 mg STK-MED ONCE .ROUTE 01/04/17 19:47 01/04/17 19:48 DC Fentanyl (Sublimaze) 100 mcg STK-MED ONCE .ROUTE 01/04/17 19:47 01/04/17 19:48 DC Metoclopramide HCl (Reglan) 10 mg STK-MED ONCE .ROUTE 01/04/17 19:47 01/04/17 19:48 DC Oxytocin (Oxytocin) 10 units STK-MED ONCE .ROUTE 01/04/17 19:47 01/04/17 19:48 DC Phenylephrine HCl (Simeon-Synephrine Inj Syg) 500 mcg STK-MED ONCE .ROUTE 01/04/17 19:47 01/04/17 19:48 DC Hydromorphone HCl (Dilaudid (Rec)) 0.2 mg PACU ORDER PRN IV MILD PAIN LEVEL 1-3 01/04/17 20:30 01/04/17 23:59 DC Hydromorphone HCl (Dilaudid (Rec)) 0.4 mg PACU ORDER PRN IV MODERATE PAIN LEVEL 4-6 01/04/17 20:30 01/04/17 23:59 DC Hydromorphone HCl (Dilaudid (Rec)) 0.6 mg PACU ORDER PRN IV SEVERE PAIN LEVEL 7-10 01/04/17 20:30 01/04/17 23:59 DC Fentanyl (Sublimaze) 25 mcg PACU ORDER PRN IV MILD PAIN LEVEL 1-3 01/04/17 20:30 01/04/17 23:59 DC Fentanyl (Sublimaze) 50 mcg PACU ODER PRN IV MODERATE PAIN LEVEL 4-6 01/04/17 20:30 01/04/17 23:59 DC Fentanyl (Sublimaze) 75 mcg PACU ORDER PRN IV SEVERE PAIN LEVEL 7-10 01/04/17 20:30 01/04/17 23:59 DC Oxycodone/ Acetaminophen (Percocet (5/ 325)) 1 tab PACU ORDER PRN PO PAIN LEVEL 1-5 01/04/17 20:30 01/04/17 23:59 DC Oxycodone/ Acetaminophen (Percocet (5/ 325)) 2 tab PACU ORDER PRN PO PAIN LEVEL 6-10 01/04/17 20:30 01/04/17 23:59 DC Ondansetron HCl (Zofran Inj) 4 mg PACU ORDER PRN IV NAUSEA AND/OR VOMITING 01/04/17 20:30 01/04/17 23:59 DC Trimethobenzamide HCl (Tigan) 200 mg PACU ORDER PRN IM NAUSEA AND/OR VOMITING 01/04/17 20:30 01/04/17 23:59 DC Labetalol HCl (Labetalol) 5 mg PACU ORDER PRN IV HIGH BLOOD PRESSURE 01/04/17 20:30 01/04/17 23:59 DC Hydralazine HCl (Apresoline) 5 mg PACU ORDER PRN IV HIGH BLOOD PRESSURE 01/04/17 20:30 01/04/17 23:59 DC Ephedrine Sulfate 5 mg PACU ORDER PRN IV MAP LESS THAN 60 01/04/17 20:30 01/04/17 23:59 DC Albuterol (Proventil 0.083% (Neb)) 2.5 mg PACU ORDER PRN HHN WHEEZING 01/04/17 20:30 01/04/17 23:59 DC Ipratropium [place] (Atrovent 0.02% (Neb)) 0.5 mg PACU ORDER PRN HHN WHEEZING 01/04/17 20:30 01/04/17 23:59 DC Meperidine HCl (Demerol) 25 mg PACU ORDER PRN IV POST-OP RIGORS 01/04/17 20:30 01/04/17 23:59 DC Diphenhydramine HCl (Benadryl) 25 mg PACU ORDER PRN IV PRURITUS 01/04/17 20:30 01/04/17 23:59 DC Naloxone HCl (Narcan) 0.1 mg Q2M PRN IV FOR RESP RATE 8 OR LESS 01/04/17 20:30 01/05/17 00:20 DC Ketorolac Tromethamine (Toradol) 30 mg Q6H PRN IV PAIN 01/04/17 20:30 01/05/17 19:52 DC 01/05/17 12:58 Morphine Sulfate (morphine) 2 mg Q3H PRN IV PAIN LEVEL 1-5 01/04/17 20:30 01/05/17 19:52 DC Morphine Sulfate (morphine) 4 mg Q3H PRN IV PAIN LEVEL 6-10 01/04/17 20:30 01/05/17 19:52 DC Diphenhydramine HCl (Benadryl) 25 mg Q6H PRN IV ITCHING 01/04/17 20:30 01/05/17 19:52 DC Nalbuphine HCl (Nubain) 5 mg ONCE PRN IV ITCHING 01/04/17 20:30 01/05/17 19:52 DC Ondansetron HCl (Zofran Inj) 4 mg Q6H PRN IV NAUSEA AND/OR VOMITING 01/04/17 20:30 01/05/17 19:52 DC Trimethobenzamide HCl (Tigan) 200 mg Q6H PRN IM NAUSEA AND/OR VOMITING 01/04/17 20:30 01/05/17 19:52 DC Miscellaneous Information (* Miscellaneous Pharmacy Order) Duramorph: 20 mg Spi... GIVEN XX 01/04/17 20:30 01/05/17 00:20 DC Diphenhydramine HCl 50 mg 50 mg STK-MED ONCE .ROUTE 01/04/17 20:16 01/04/17 20:17 DC Oxytocin/Lactated Ringer's 500 ml @ 125 mls/hr ONCE IV 01/04/17 21:40 01/05/17 00:20 DC 01/04/17 21:46 Lactated Ringer's 1,000 ml @ 125 mls/hr Q8H IV 01/05/17 00:16 01/05/17 15:18 Oxytocin/Lactated Ringer's 500 ml @ 125 mls/hr Q4H IV 01/05/17 00:16 01/05/17 08:15 DC 01/05/17 09:48 Oxycodone/ Acetaminophen (Percocet (5/ 325)) 1 tab Q4H PRN PO PAIN LEVEL 4-6 01/05/17 19:53 Oxycodone/ Acetaminophen (Percocet (5/ 325)) 2 tab Q4H PRN PO PAIN LEVEL 7-10 01/05/17 19:53 01/06/17 23:23 Ibuprofen (Motrin) 800 mg Q8 PO 01/05/17 22:00 01/07/17 05:41 Simethicone (Mylicon) 160 mg Q8H PRN PO DISTENSION/GAS/BLOATING 01/05/17 00:30 01/05/17 09:42 Senna/Docusate Sodium (Senokot-S) 1 tab BID PO 01/05/17 09:00 01/06/17 09:55 Lanolin (Vcv-L-Nqofva) 1 applic BEDSIDE MEDICATION PRN TOP BEDSIDE FOR CRICKET TO NIPPLES 01/05/17 00:30 01/05/17 09:45 Diphtheria/ Tetanus/Acell Pertussis 0.5 ml 0.5 ml ONCE ONCE IM* 01/07/17 09:00 01/07/17 09:01 DC Oxytocin/Lactated Ringer's 500 ml @ 0 mls/hr ONCE PRN IV For Hemorrhage Management 01/05/17 00:30 Methylergonovine Maleate (Methergine) 0.2 mg ONCE PRN IM VAGINAL BLEEDING 01/05/17 00:30 Carboprost Tromethamine (Hemabate) 250 mcg ONCE PRN IM VAGINAL BLEEDING 01/05/17 00:30 Misoprostol (Cytotec) 1,000 mcg ONCE PRN ND VAGINAL BLEEDING 01/05/17 00:30 New born is under light therapy . Mother may stay if baby can not be discharged . Bowel Movement: Yes Breast: Soft, non-tender Fundus: Firm Abdomen and Incision: Clean , [place] will be removed 3 days later in the clinic Calf Tenderness: No Patient Condition: Good EULALIA MARQUEZ MD Jan 07, 2017 11:15
[2017-01-07] MEDS ORDERED: IBUP-1542 PO (11:45)
[2017-01-07] MEDS ORDERED: ACET500C5 PO (11:47)
== END 2017-01-07 15:00 | disposition home or self-care (01) | DRG 766 ==
LOC: L-D 14:10 → OBT 14:10 → L-D 16:00 → PP1 23:46
PROVIDERS: ADMIT Obstetrics & Gynecology; ATTEND Obstetrics & Gynecology
PROC: 0UB70ZZ Excision of Bilateral Fallopian Tubes, Open Approach (ICD-10-PCS; 2017-01-04)
PROC: 10D00Z1 Extraction of Products of Conception, Low, Open Approach (ICD-10-PCS; principal; 2017-01-04 20:15)
DX: O34.219 Maternal care for unspecified type scar from previous cesarean delivery (principal); O24.429 Gestational diabetes mellitus in childbirth, unspecified control; Z37.0 Single live birth; Z3A.38 38 weeks gestation of pregnancy
CPT/HCPCS: 36415; 82962; 85025; 85610; 85730; 86592; 86850; 86900; 86901; 86920; 88302; 90715; 94760; 99464; G0463; J0690; J1200; J1885; J2210; J2274; J2370; J2405; J2590; J2765; J3010; J7120; J7121